=== PATIENT | female | born 1995 | race Caucasian/White ===

== ENCOUNTER 2018-11-05 15:13 | Outpatient (CLI) | payer BC, SELFPAY ==
--- NOTE | 2018-11-05 15:40 | DI.US_ITS ---
SYMPTOM/DIAGNOSIS: IUD LOCALIZATION, Z97.5 PELVIC ULTRASOUND: Transabdominal and transvaginal examinations were performed. The uterus measures 6.9 by 2.6 by 4.6 cm. An IUD is seen within the endometrial cavity. The endometrial stripe measures 5 mm. in thickness. The ovaries show small follicles bilaterally. The uterus is retroverted. The bladder and kidneys are unremarkable. IMPRESSION: IUD is present within the endometrial stripe and appears appropriately positioned.
== END 2018-11-05 15:33 ==
PROVIDERS: Visit Provider Nurse Practitioner Adult Health
DX: Z30.431 Encounter for routine checking of intrauterine contraceptive device (principal)
CPT/HCPCS: 76830; 76856